=== PATIENT | male | born 1945 | race Caucasian/White ===

== ENCOUNTER 2022-06-27 15:04 | Emergency (ER) | payer MEDICARE, OTHER ==
[2022-06-27] MEDS ORDERED: Sodium Bicarb 50 MEQ/50 ML Abboject 8.4% SYRINGE ONE (15:07)
[2022-06-27] MEDS ORDERED: Calcium Chloride 1 GM/10 ML Abboject SYRINGE ONE (15:07)
[2022-06-27] MEDS ORDERED: EPINEPHrine 1 MG/10 ML Abboject SYRINGE ONE (15:07)
[2022-06-27] MEDS ORDERED: Atropine Sulfate 1 mg/10 ml Syringe ONE (15:07)
== END 2022-06-27 15:15 | disposition expired ==
LOC: ERS 15:04
DX: I46.9 Cardiac arrest, cause unspecified (principal); E11.9 Type 2 diabetes mellitus without complications; E78.5 Hyperlipidemia, unspecified; I10 Essential (primary) hypertension; Z87.891 Personal history of nicotine dependence
CPT/HCPCS: 36556; 92950; J0171; J0461